=== PATIENT | female | born 1950 | race African-American/Black ===

== ENCOUNTER 2016-08-02 02:42 | Emergency (ER) | payer OTHER, MEDICARE ==
[~2016-08-02] VITALS: Ht 157.5 cm; Wt 72.5 kg
[2016-08-02 02:43] VITALS: BP 197/88; PULSE 89; RESP 16; TEMP 97.7; O2SAT 95
[2016-08-02] MEDS ORDERED: AMLO10TA2 PO (03:02)
[2016-08-02] MEDS ORDERED: ALPR.5 PO (03:02)
[2016-08-02] MEDS ORDERED: SIMV20TA PO (03:02)
[2016-08-02] MEDS ORDERED: ASPI81CH7 CHEW (03:02)
[2016-08-02] MEDS ORDERED: LISI10TA3 PO (03:02)
[2016-08-02] MEDS ORDERED: cloNIDine HCL 0.1 MG TAB PO ONE (03:15)
--- NOTE | 2016-08-02 03:18 | PD ---
HPI Chief Complaint: Nosebleed Time Seen by Provider: 03:03 Travel History International Travel<30 days: No Contact w/Intl Traveler<30days: No Traveled to known affect area: No History of Present Illness HPI This patient has history of nosebleeds. She had cautery by urinalysis throat physician 2 months ago. He had a nose bleed yesterday which stopped. She had one this evening as well. Currently has stopped. No presyncopal symptoms. She takes daily aspirin. Has history of hypertension on medication for it. At this time symptoms severity is mild PFSH Past Medical History Hx Anticoagulant Therapy: No Anxiety: Yes Cardiovascular Problems: Yes High Cholesterol: Yes Congestive Heart Failure: Yes Diminished Hearing: No Hypertension: Yes Tetanus Vaccination: > 5 Years ?: Not Past Surgical History Hysterectomy: No Social History Alcohol Use: No Tobacco Use: No Substance Use: No Allergies-Medications (Allergen,Severity, Reaction): Coded Allergies: No Known Allergies (Unverified , 08/02/16) Reported Meds & Prescriptions Reported Meds & Active Scripts Active Reported Simvastatin 20 Mg Tab 20 Mg PO DAILY Xanax (Alprazolam) 0.5 Mg Tab 0.5 Mg PO Q4H PRN Aspirin Children's (Aspirin) 81 Mg Chew 81 Mg CHEW DAILY Lisinopril 10 Mg Tab 10 Mg PO DAILY Amlodipine (Amlodipine Besylate) 10 Mg Tab 10 Mg PO DAILY Review of Systems General / Constitutional: No: Fever HENT: No: Headaches Cardiovascular: No: Chest Pain or Discomfort Physical Exam Narrative NECK: Symmetrical appearance, midline trachea. No mass or crepitus. Thyroid without enlargement, tenderness, or mass. SKIN: Focused skin assessment reveals no rash or ulcers. Skin is warm and dry. Palpation shows no induration or nodules. Psych: Normal mood and affect. Normal insight and judgment. No active bleeding in the nares and throat clear Data Data Last Documented VS Vital Signs Date Time Temp Pulse Resp B/P Pulse Ox O2 Delivery O2 Flow Rate FiO2 08/02/16 03:02 20 08/02/16 02:43 97.7 89 197/88 95 Room Air MDM Medical Decision Making Medical Screen Exam Complete: Yes Emergency Medical Condition: Yes Medical Record Reviewed: Yes Differential Diagnosis Epistaxis, AVM, accelerated hypertension Narrative Course I have reviewed the patient's electronic medical record. At this time the nose is not bleeding Gave her a dose of clonidine and recommend she check her blood pressure daily and follow with physician for it She should call her ENT physician in the morning for repeat evaluation Will hold her aspirin until she can contact her physician Diagnosis Primary Impression: Epistaxis, recurrent Additional Impression: Accelerated hypertension Additional Instructions: The patient was advised to follow up with their physician and return if they worsen. Check and record blood pressure daily Call ENT physician in the morning for follow-up recommendations Hold aspirin until your physician can discuss this with you Med/Other Pt SpecificInfo: Other Disposition: DISCHARGE HOME Condition: Stable Huy Clifton MD August 02, 2016 03:18
== END 2016-08-02 03:45 | disposition home or self-care (01) ==
LOC: NEPE 02:42
DX: R04.0 Epistaxis (principal); I10 Essential (primary) hypertension
CPT/HCPCS: 99283

== ENCOUNTER 2016-08-04 11:25 | Emergency (ER) | payer MEDICARE, OTHER ==
[~2016-08-04] VITALS: Ht 162.6 cm; Wt 72.0 kg
[~2016-08-04 11:25] MED LIST: ALPR.5 PO; AMLO10TA2 PO; ASPI81CH7 CHEW; LISI10TA3 PO; SIMV20TA PO
[2016-08-04 11:27] VITALS: BP 148/77; PULSE 82; RESP 15; TEMP 98.1; O2SAT 97
--- NOTE | 2016-08-04 11:39 | PD ---
Physical Exam Time Seen by Provider: 11:35 Narrative 66yo F c/o continued nose bleeding after nasal packing by PCP yesterday. PCP told to come to ER for repacking w/ better equipment. Had cauterized 1 month ago. Denies lightheadedness, dizziness, near syncope, syncope. Patient seen in triage. VS reviewed. Patient awaiting bed placement. Data Data Last Documented VS Vital Signs Date Time Temp Pulse Resp B/P Pulse Ox O2 Delivery O2 Flow Rate FiO2 08/04/16 11:27 98.1 82 15 148/77 97 MDM Supervised Visit with WESLEY: Kalie Esqueda Aug 04, 2016 11:39
--- NOTE | 2016-08-04 12:42 | PD ---
HPI Chief Complaint: Nosebleed Time Seen by Provider: 11:58 Travel History International Travel<30 days: No Contact w/Intl Traveler<30days: No Traveled to known affect area: No History of Present Illness HPI This is a 66-year-old female who presents to the emergency department with 3 days of bleeding from her left nose, constant, moderate severity. Patient was seen by Dr. West, ear nose and throat in the office yesterday afternoon and nasal packing was placed. She went to the emergency department last evening because she continued to have bleeding. She was sent home. She called the office today because she is continuing to have oozing from the nose and they sent her here to the emergency department. She denies any lightheadedness or dizziness. She's been holding her aspirin and taking her blood pressure medications as instructed. She has a history of having required cauterization in the nose several years ago. PFSH Past Medical History Hx Anticoagulant Therapy: No Anxiety: Yes Cardiovascular Problems: Yes High Cholesterol: Yes Congestive Heart Failure: Yes Diminished Hearing: No Hypertension: Yes ?: Not Past Surgical History Hysterectomy: No Social History Alcohol Use: No Tobacco Use: No Substance Use: No Allergies-Medications (Allergen,Severity, Reaction): Coded Allergies: No Known Allergies (Unverified , 08/04/16) Reported Meds & Prescriptions Reported Meds & Active Scripts Active Reported Simvastatin 20 Mg Tab 20 Mg PO DAILY Xanax (Alprazolam) 0.5 Mg Tab 0.5 Mg PO Q4H PRN Aspirin Children's (Aspirin) 81 Mg Chew 81 Mg CHEW DAILY Lisinopril 10 Mg Tab 10 Mg PO DAILY Amlodipine (Amlodipine Besylate) 10 Mg Tab 10 Mg PO DAILY Review of Systems Except as stated in HPI: all other systems reviewed are Neg Physical Exam Narrative GENERAL:Well appearing, no acute distress SKIN: Focused skin assessment warm and dry. HEAD: Atraumatic. Normocephalic. EYES: Pupils equal and round. No injection or drainage. ENT: Packing in the left nare with a slow trickle of dark blood. NECK: Trachea midline. CARDIOVASCULAR: Regular rate and rhythm. No murmur appreciated. RESPIRATORY: Clear to auscultation. Breath sounds equal bilaterally. GASTROINTESTINAL: Abdomen soft, non-tender, nondistended. MUSCULOSKELETAL: No obvious deformities. NEUROLOGICAL: Awake and alert. No obvious cranial nerve deficits. Moving all extremities. PSYCHIATRIC: Appropriate mood and affect; insight and judgment normal. Data Data Last Documented VS Vital Signs Date Time Temp Pulse Resp B/P Pulse Ox O2 Delivery O2 Flow Rate FiO2 08/04/16 11:27 98.1 82 15 148/77 97 MDM Medical Decision Making Medical Screen Exam Complete: Yes Emergency Medical Condition: Yes Interpretation(s) Afebrile, hypertensive Differential Diagnosis Anterior epistaxis, posterior epistaxis Narrative Course This is a 66-year-old female who presents to the emergency department with epistaxis. She had packing placed in the ENT office. I spoke to Dr. Merchant who recommended that I replaced the patient's packing with a 7.5 cm pack. I placed a long Rhino Rocket. Patient tolerated the procedure. She'll be discharged on pain control and she was told to follow-up with ENT tomorrow. Diagnosis Primary Impression: Epistaxis, recurrent Referrals: ENT tomorrow Patient Instructions: General Instructions Additional Instructions: If you have another nose bleed: - Sit forward at the waist, don't lie down or tilt your head back. - Pinch the soft area towards the bottom of your nose below the bone. - Squeeze your nose shut for ATLEAST 15 minutes. Use a clock and don't release pressure until time is up. If this fails try again for 30 minutes. If your nose continues to bleed, go to the emergency department. Return to the Emergency department if: You are having difficulty bleeding Your nose bleeds cause you to turn pale, or make you tired or confused If they won't stop after fifteen minutes of constant pressure If you have chest pain, shortness of breath, or other serious symptoms. Call 911 if you are bleeding a lot, have chest pain, or feel woozy. You can help prevent nose bleeds by getting a humidifier in your bedroom. Keeping the inside of your nose moist with bacitracin ointment applied with a cotton swab twice daily. Med/Other Pt SpecificInfo: No Change to Meds Disposition: 01 DISCHARGE HOME Condition: Stable Becca Gonzalez MD Aug 04, 2016 12:42
[2016-08-04] MEDS ORDERED: CHLO25TA2 PO (18:37)
== END 2016-08-04 14:20 | disposition home or self-care (01) ==
LOC: NEPD 11:25
DX: R04.0 Epistaxis (principal); E78.00 Pure hypercholesterolemia, unspecified; I50.9 Heart failure, unspecified; I10 Essential (primary) hypertension
CPT/HCPCS: 30901

== ENCOUNTER 2016-08-04 16:20 | Observation (INO) | payer MEDICARE ==
[2016-08-04] VITALS (7 sets, daily range): BP systolic 138–168; BP diastolic 65–81; PULSE 84–110; RESP 16–18; TEMP 97.8–98.1; O2SAT 91–97
[~2016-08-04] VITALS: Ht 157.5 cm; Wt 72.0 kg
--- NOTE | 2016-08-04 16:26 | PD ---
Physical Exam Time Seen by Provider: 16:24 Narrative 66yo F returns w/ continued nose bleeding after nasal rocket placed earlier today. Is now feeling lightheaded. Denies dizziness. Patient seen in triage. VS reviewed. Awaiting bed placement. Data Data Last Documented VS Vital Signs Date Time Temp Pulse Resp B/P Pulse Ox O2 Delivery O2 Flow Rate FiO2 08/04/16 16:21 97.8 110 18 154/81 95 MDM Supervised Visit with WESLEY: Kalie Esqueda Aug 04, 2016 16:26
[2016-08-04] MEDS ORDERED: SODIUM CHLOR 0.9% 1000 ML INJ 1,000 ML IV ONE (17:00)
--- NOTE | 2016-08-04 17:20 | PD ---
Physical Exam Narrative Patient was seen by ED physician and signed out to me. Patient took doxycycline, one tablet yesterday. Data Data Last Documented VS Vital Signs Date Time Temp Pulse Resp B/P Pulse Ox O2 Delivery O2 Flow Rate FiO2 08/04/16 16:21 97.8 110 18 154/81 95 Orders Complete Blood Count With Diff (08/04/16 16:57) Basic Metabolic Panel (Bmp) (08/04/16 16:57) Sodium Chlor 0.9% 1000 Ml Inj (Ns 1000 M (08/04/16 17:00) Prothrombin Time / Inr (Pt) (08/04/16 17:13) Act Partial Throm Time (Ptt) (08/04/16 17:13) Morphine Inj (Morphine Inj) (08/04/16 17:30) Ondansetron Inj (Zofran Inj) (08/04/16 17:30) Ampicillin-Sulbactam Inj (Unasyn Inj) (08/04/16 17:30) Consult Ent (08/04/16 ) Labs Laboratory Tests Test 08/04/16 08/04/16 15:15 17:00 Prothrombin Time 11.2 SEC Prothromb Time International 1.0 RATIO Ratio Activated Partial 25.7 SEC Thromboplast Time White Blood Count 9.3 TH/MM3 Red Blood Count 4.24 MIL/MM3 Hemoglobin 11.4 GM/DL Hematocrit 35.2 % Mean Corpuscular Volume 83.0 FL Mean Corpuscular Hemoglobin 26.8 PG Mean Corpuscular Hemoglobin 32.3 % Concent Red Cell Distribution Width 15.0 % Platelet Count 220 TH/MM3 Mean Platelet Volume 11.4 FL Neutrophils (%) (Auto) 72.6 % Lymphocytes (%) (Auto) 15.6 % Monocytes (%) (Auto) 10.9 % Eosinophils (%) (Auto) 0.3 % Basophils (%) (Auto) 0.6 % Neutrophils # (Auto) 6.7 TH/MM3 Lymphocytes # (Auto) 1.4 TH/MM3 Monocytes # (Auto) 1.0 TH/MM3 Eosinophils # (Auto) 0.0 TH/MM3 Basophils # (Auto) 0.1 TH/MM3 CBC Comment DIFF FINAL Differential Comment Sodium Level 136 MEQ/L Potassium Level 3.6 MEQ/L Chloride Level 98 MEQ/L Carbon Dioxide Level 29.7 MEQ/L Anion Gap 8 MEQ/L Blood Urea Nitrogen 21 MG/DL Creatinine 1.04 MG/DL Estimat Glomerular Filtration 64 ML/MIN Rate Random Glucose 93 MG/DL Calcium Level 9.8 MG/DL MDM Supervised Visit with WESLEY: No Narrative Course Patient was given IV fluid. Morphine 2 mg IV. Zofran 4 mg IV. Unasyn 3 g IV. I spoke with Dr. Merchant, ENT on-call. Advised admitted to the medical service with ENT consultation. Diagnosis Primary Impression: Epistaxis, recurrent Admitting Information Admitting Physician Requests: Observation Jarrell Lord MD Aug 04, 2016 17:20
[2016-08-04] MEDS ORDERED: ONDANSETRON HCL 4 MG/2 ML VIAL IV PUSH ONE (17:30)
[2016-08-04] MEDS ORDERED: MORPHINE SULFATE 4 MG/ML INJ IV PUSH ONE (17:30)
[2016-08-04] MEDS ORDERED: AMPICILLIN-SULBACTAM INJ 3 GM in SODIUM CHLORIDE 0.9% INJ 100 ML IV ONE (17:30)
[2016-08-04 17:34] LABS: AUTOMATED NEUTROPHIL # 6.7 TH/MM3 (1.8-7.7); BASOPHIL # 0.1 TH/MM3 (0-0.2); BASOPHIL % 0.6 % (0.0-2.0); EOSINOPHIL % 0.3 % (0.0-4.0); HEMATOCRIT 35.2 % (35.0-46.0); HEMO FLAGS DIFF FINAL; LYMPH % 15.6 % (9.0-44.0); LYMPHOCYTE # 1.4 TH/MM3 (1.0-4.8); MEAN CORPUSCULAR HEMOGLOBIN 26.8 PG (27.0-34.0); MEAN CORPUSCULAR HGB CONC 32.3 % (32.0-36.0); MONO % 10.9 % (0.0-8.0); NEUT % 72.6 % (16.0-70.0); PLATELET COUNT 220 TH/MM3 (150-450); RED BLOOD COUNT 4.24 MIL/MM3 (4.00-5.30); WHITE BLOOD COUNT 9.3 TH/MM3 (4.0-11.0)
[2016-08-04 17:49] LABS: BICARBONATE 29.7 MEQ/L (21.0-32.0); POTASSIUM 3.6 MEQ/L (3.5-5.1)
[2016-08-04 17:51] LABS: APTT (PATIENT) 25.7 SEC (24.3-30.1); PROTHROMBIN TIME - PATIENT 11.2 SEC (9.8-11.6)
[2016-08-04] MEDS ORDERED: MORPHINE SULFATE 4 MG/ML INJ IV PUSH PRN (18:30)
[2016-08-04] MEDS ORDERED: PANTOPRAZOLE SODIUM 40 MG VIAL IV PUSH SCH ×2 (18:30→20:00)
[2016-08-04] MEDS ORDERED: CHLO25TA2 PO (18:37)
[2016-08-04] MEDS: SODIUM CHLOR 0.9% 1000 ML INJ 1,000 ML IV SCH (19:34)
[2016-08-04] MEDS ORDERED: SODIUM CHLORIDE 0.9% FLUSH 10 ML FLUSH IVF PRN (19:45)
[2016-08-04] MEDS ORDERED: ACETAMINOPHEN 325 MG TAB PO PRN ×2 (19:45→20:00)
[2016-08-04] MEDS ORDERED: ONDANSETRON HCL 4 MG/2 ML VIAL IV PRN (19:45)
[2016-08-04] MEDS ORDERED: ZOLPIDEM TARTRATE 5 MG TAB PO PRN (20:00)
[2016-08-04] MEDS ORDERED: cloNIDine HCL 0.1 MG TAB PO PRN (20:00)
[2016-08-04] MEDS ORDERED: ONDANSETRON HCL 4 MG/2 ML VIAL IVP PRN (20:00)
[2016-08-04] MEDS ORDERED: ACETAMINOPHEN/HYDROcodone 325 MG/5 MG TAB PO PRN (20:00)
[2016-08-04] MEDS ORDERED: NALOXONE HCL 0.4 MG/ML AMP IV PRN (20:00)
[2016-08-04] MEDS ORDERED: SENNOSIDES 8.6 MG TAB PO PRN (20:00)
[2016-08-04] MEDS ORDERED: SODIUM CHLORIDE 0.9% FLUSH 10 ML FLUSH IV FLUSH PRN (20:00)
[2016-08-04] MEDS ORDERED: BISACODYL 10 MG SUPP RECTAL PRN (20:00)
[2016-08-04] MEDS ORDERED: ALPRAZolam 0.5 MG TAB PO PRN (20:00)
[2016-08-04] MEDS ORDERED: MAGNESIUM HYDROXIDE SUSP 30 ML CUP PO PRN (20:00)
[2016-08-04] MEDS ORDERED: ENALAPRILAT 2.5 MG/2 ML VIAL IV PUSH PRN (20:00)
[2016-08-04] MEDS ORDERED: LACTULOSE SYRUP 20 GM/30 ML CUP PO PRN (20:00)
[2016-08-04] MEDS ORDERED: SODIUM CHLORIDE 0.9% FLUSH 10 ML FLUSH IV FLUSH SCH (21:00)
[2016-08-04] MEDS ORDERED: AMOXICILLIN/CLAVULANATE K 875 MG TAB PO SCH (21:00)
[2016-08-04] MEDS ORDERED: PILL SPLITTER OTHER PRN (21:15)
[2016-08-04] MEDS: DOCUSATE SODIUM 50 MG/SENNA 8.6 MG TAB PO SCH (21:26)
[2016-08-04] MEDS: SODIUM CHLORIDE 0.9% FLUSH 10 ML FLUSH IV FLUSH SCH (21:27)
[2016-08-05] VITALS (8 sets, daily range): BP systolic 141–164; BP diastolic 58–80; PULSE 60–82; RESP 18–20; TEMP 96.5–98.9; O2SAT 86–97
[2016-08-05] MEDS ORDERED: cloNIDine HCL 0.1 MG TAB PO ONE (01:47)
[2016-08-05] MEDS: AMPICILLIN/SULBAC 3 GM/NS 100 ML IV SCH ×8 (01:55→20:00)
[2016-08-05 06:58] LABS: AUTOMATED NEUTROPHIL # 5.6 TH/MM3 (1.8-7.7); BASOPHIL % 0.3 % (0.0-2.0); EOSINOPHIL # 0.1 TH/MM3 (0-0.4); EOSINOPHIL % 1.5 % (0.0-4.0); HEMO FLAGS DIFF FINAL; LYMPH % 14.1 % (9.0-44.0); LYMPHOCYTE # 1.1 TH/MM3 (1.0-4.8); MEAN CELL VOLUME 83.4 FL (80.0-100.0); MEAN CORPUSCULAR HEMOGLOBIN 26.9 PG (27.0-34.0); MEAN CORPUSCULAR HGB CONC 32.3 % (32.0-36.0); MONO % 9.8 % (0.0-8.0); NEUT % 74.3 % (16.0-70.0); PLATELET COUNT 149 TH/MM3 (150-450); RED CELL DISTRIBUTION WIDTH 14.9 % (11.6-17.2); WHITE BLOOD COUNT 7.6 TH/MM3 (4.0-11.0)
[2016-08-05 07:34] LABS: BICARBONATE 32.1 MEQ/L (21.0-32.0); POTASSIUM 3.5 MEQ/L (3.5-5.1)
[2016-08-05] MEDS: DOCUSATE SODIUM 50 MG/SENNA 8.6 MG TAB PO SCH ×2 (08:27→20:19)
[2016-08-05] MEDS: SODIUM CHLOR 0.9% 1000 ML INJ 1,000 ML IV SCH (08:48)
[2016-08-05] MEDS ORDERED: CHLORTHALIDONE 12.5 MG PO SCH (09:00)
[2016-08-05] MEDS: SODIUM CHLORIDE 0.9% FLUSH 10 ML FLUSH IV FLUSH SCH ×2 (09:00→20:11)
[2016-08-05] MEDS ORDERED: LISINOPRIL 10 MG TAB PO SCH (09:00)
[2016-08-05] MEDS ORDERED: NON-FORMULARY DRUG (Simvastatin 20 MG) PO SCH (09:00)
[2016-08-05] MEDS: PRAVASTATIN SOD 40 MG TAB PO SCH (09:00)
[2016-08-05] MEDS: CHLORTHALIDONE 50 MG TAB PO SCH (09:50)
--- NOTE | 2016-08-05 10:08 | HHI.HP ---
History of Present Illness Primary Care Physician Henok Lorenzo MD Admission Diagnosis epistaxis Diagnoses: (1) Accelerated hypertension (2) Epistaxis, recurrent History of Present Illness 66 Y AAF. SEEN IN MY OFFICE. RECURRENT EPISTAXIS. INTO ER AND WENT HOME, CAME BACK W INTRACTABLE EPISTAXIS. STARTED HER ON CHLORTHALIDONE LAST WEEK AND WAS WORKING UP MYALGIAS AND ATTEMPTING TO CONTROL SEVERE ANXIETY AND PERSONALITY DISORDER NOS. PT W ONGOING EPISTAXIS HERE IN ER, I WAS CALLED FOR ADMIT. BLEEDING STILL THIS AM. GIVEN IV ABX. Review of Systems Constitutional: COMPLAINS OF: Fatigue, Dizziness, Change in appetite Ears, nose, mouth, throat: COMPLAINS OF: Epistaxis Respiratory: COMPLAINS OF: Cough Except as stated in HPI: all other systems reviewed are Neg Past Family Social History Allergies: Coded Allergies: No Known Allergies (Unverified , 08/04/16) Past Medical History dCHF PANIC DIS htn Past Surgical History NASAL CAUTERY RECURRENT Reported Medications Current Medications Medications (Trade) Dose Ordered Sig/Lalit Route Start Time Stop Time Status Last Admin (NS 1000 ml Inj) 1,000 ml @ 70 mls/hr [id number] IV 08/04/16 18:30 08/04/16 19:34 (Morphine Inj) 2 mg Q3H PRN IV PUSH 08/04/16 18:30 (Augmentin) 875 mg Q12HR PO 08/04/16 21:00 08/04/16 21:27 (Xanax) 0.5 mg Q4H PRN PO 08/04/16 20:00 (Norvasc) 10 mg DAILY PO 08/05/16 09:00 08/05/16 08:26 (Prinivil) 10 mg DAILY PO 08/05/16 09:00 08/05/16 08:27 (NS Flush) 2 ml UNSCH PRN IV FLUSH 08/04/16 20:00 (NS Flush) 2 ml BID IV FLUSH 08/04/16 21:00 08/04/16 21:27 (Tylenol) 650 mg Q4H PRN PO 08/04/16 20:00 (Zofran Inj) 4 mg Q6H PRN IVP 08/04/16 20:00 (Ambien) 5 mg HS PRN PO 08/04/16 20:00 (Narcan Inj) 0.4 mg UNSCH PRN IV 08/04/16 20:00 (Olga-Colace) 1 tab BID PO 08/04/16 21:00 08/05/16 08:27 (Milk Of Magnesia Liq) 30 ml Q12H PRN PO 08/04/16 20:00 (Senokot) 17.2 mg Q12H PRN PO 08/04/16 20:00 (Dulcolax Supp) 10 mg DAILY PRN RECTAL 08/04/16 20:00 (Lactulose Liq) 30 ml DAILY PRN PO 08/04/16 20:00 (Chidester 5-325 Mg) 1 tab Q4H PRN PO 08/04/16 20:00 (Catapres) 0.1 mg Q6H PRN PO 08/04/16 20:00 (Vasotec Inj) 2.5 mg Q6H PRN IV PUSH 08/04/16 20:00 (Protonix Inj) 40 mg Q24H IV PUSH 08/05/16 20:00 (Hygroton) 12.5 mg DAILY PO 08/05/16 09:00 08/05/16 09:50 (Pill Splitter) 1 ea UNSCH PRN OTHER 08/04/16 21:15 Pravastatin Sodium 40 mg 40 mg DAILY PO 08/05/16 09:00 08/05/16 09:00 (Unasyn Inj/NS Inj) 100 ml @ 200 mls/hr Q6H IV 08/05/16 02:00 08/05/16 07:56 Family History F CAD, NEG OTHERWISE 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 SKIN: No rashes, ecchymoses or lesions. Cool and dry. HEAD: Atraumatic. Normocephalic. No temporal or scalp tenderness. EYES: Pupils equal round and reactive. Extraocular motions intact. No scleral icterus. No injection or drainage. ENT: Nose without purulent drainage or septal hematoma. Throat without erythema , tonsillar hypertrophy or exudate. Uvula midline. Airway patent. +NASAL ROCKET L NECK: Trachea midline. No JVD or lymphadenopathy. Supple, nontender, no meningeal signs. CARDIOVASCULAR: Regular rate and rhythm without murmurs, gallops, or rubs. RESPIRATORY: Clear to auscultation. Breath sounds equal bilaterally. No wheezes , rales, or rhonchi. GASTROINTESTINAL: Abdomen soft, non-tender, nondistended. No hepato-splenomegaly , or palpable masses. No guarding. MUSCULOSKELETAL: Extremities without clubbing, cyanosis, or edema. No joint tenderness, effusion, or edema noted. No calf tenderness. Negative Homans sign bilaterally. NEUROLOGICAL: Awake and alert. Cranial nerves II through XII intact. Motor and sensory grossly within normal limits. Five out of 5 muscle strength in all muscle groups. Normal speech. Laboratory Laboratory Tests Test 08/04/16 08/04/16 08/05/16 08/05/16 15:15 17:00 06:05 06:09 Prothrombin Time 11.2 Prothromb Time International 1.0 Ratio Activated Partial 25.7 Thromboplast Time White Blood Count 9.3 7.6 Red Blood Count 4.24 3.60 Hemoglobin 11.4 9.7 Hematocrit 35.2 30.0 Mean Corpuscular Volume 83.0 83.4 Mean Corpuscular Hemoglobin 26.8 26.9 Mean Corpuscular Hemoglobin 32.3 32.3 Concent Red Cell Distribution Width 15.0 14.9 Platelet Count 220 149 Mean Platelet Volume 11.4 10.9 Neutrophils (%) (Auto) 72.6 74.3 Lymphocytes (%) (Auto) 15.6 14.1 Monocytes (%) (Auto) 10.9 9.8 Eosinophils (%) (Auto) 0.3 1.5 Basophils (%) (Auto) 0.6 0.3 Neutrophils # (Auto) 6.7 5.6 Lymphocytes # (Auto) 1.4 1.1 Monocytes # (Auto) 1.0 0.7 Eosinophils # (Auto) 0.0 0.1 Basophils # (Auto) 0.1 0.0 CBC Comment DIFF FINAL DIFF FINAL Differential Comment Sodium Level 136 139 Potassium Level 3.6 3.5 Chloride Level 98 101 Carbon Dioxide Level 29.7 32.1 Anion Gap 8 6 Blood Urea Nitrogen 21 14 Creatinine 1.04 0.93 Estimat Glomerular Filtration 64 73 Rate Random Glucose 93 101 Calcium Level 9.8 9.1 Result Diagram: 08/05/16 0605 08/05/16 0609 Assessment and Plan Problem List: (1) Accelerated hypertension Status: Acute (2) Epistaxis, recurrent Status: Acute Assessment and Plan EPISTAXIS URGENT HTN PANIC DISORDER PERSONALITY DISORDER HPLD D CHF URINARY OBSTRUCTION MYALGIAS PLAN: NASAL PACKING IV ABX ENT CONSULT LOWER BP SEE ORDERS OBS ADMIT Henok Lorenzo MD Aug 05, 2016 10:08
[2016-08-05] MEDS: PANTOPRAZOLE SODIUM 40 MG VIAL IV PUSH SCH (20:19)
[2016-08-06] VITALS (14 sets, daily range): BP systolic 138–165; BP diastolic 60–95; PULSE 57–87; RESP 18–20; TEMP 97.8–99; O2SAT 95–97
[2016-08-06] MEDS: AMPICILLIN/SULBAC 3 GM/NS 100 ML IV SCH ×8 (02:05→21:04)
--- NOTE | 2016-08-06 08:01 | HHI.PR ---
Subjective Remarks Follow-up for epistaxis. Patient denies any further left nostril bleeding overnight. She did have some scant bleeding from her right nostril when she woke up. She denies any lightheadedness, dizziness, chest pain, shortness of breath. She states that she's had procedure and her ENT doctors office for nose bleeding in the past. She said she went to see her ENT, Dr. West this week who wasn't able to do a procedure with the active bleeding. She is concerned because she feels like her oxygen level will drop to 80 if she is not on oxygen. She was cleared by ENT yesterday for discharge with nasal packing until Monday. She would like to have surgery on her nose while she is in the hospital. Objective Vitals Vital Signs Date Time Temp Pulse Resp B/P Pulse Ox O2 Delivery O2 Flow Rate FiO2 08/06/16 07:48 96 Nasal Cannula 1.00 08/06/16 05:42 18 97 08/06/16 04:18 97.9 87 20 149/95 95 08/06/16 00:03 99.0 70 20 140/63 95 08/05/16 23:50 64 08/05/16 19:14 98.9 77 20 141/59 97 08/05/16 19:14 97 Nasal Cannula 1.50 08/05/16 16:10 97.9 77 18 152/58 95 08/05/16 11:24 74 08/05/16 11:23 98.0 82 18 142/61 91 08/05/16 11:09 96.5 60 18 164/80 96 08/05/16 08:22 98.5 77 18 141/63 86 Result Diagram: 08/06/16 0633 08/05/16 0609 Objective Remarks GENERAL: Well-developed well-nourished. In no acute distress. SKIN: Warm and dry. No lesions noted. HEENT: Normocephalic. Pupils equal and round. Mucous membranes pink and moist. Nasal packing in place in the left nostril with surrounding dried blood. No active bleeding noted from the right naris or in the posterior pharynx. CARDIOVASCULAR: Regular rate and rhythm. Systolic murmur appreciated. RESPIRATORY: No accessory muscle use. Clear to auscultation. Breath sounds equal bilaterally. GASTROINTESTINAL: Abdomen soft, non-tender, nondistended. Bowel sounds x4. MUSCULOSKELETAL: No obvious deformities. No clubbing or cyanosis. No edema. NEUROLOGICAL: Awake and alert. No focal neurological deficits. Moves upper and lower extremities spontaneously. Normal speech. PSYCHIATRIC: Anxious mood and affect; insight and judgment normal. A/P Assessment and Plan 66-year-old female with past medical history of epistaxis presents with recurrent epistaxis Epistaxis: S/P Rhino Rocket with subsequent hemostasis. Hemoglobin did initially drop from 11.4-9.7, but has stabilized overnight at 9.3 today. ENT was consulted and recommend maintaining nasal packing until Monday and patient was cleared for discharge from their perspective. Continue antibiotics with packing in place. Supplemental oxygen as needed, check walk test. Control BP. Hypertension: Chronic. Reasonably controlled, but will increase her lisinopril with bleeding as above. Continue amlodipine and chlorthalidone. Clonidine and Vasotec as needed. Anxiety disorder: Chronic. Continue home Xanax. DVT prophylaxis: SCDs Discharge Planning Possible discharge today for outpatient ENT follow-up if patient remains stable. Follow-up results of walk test and blood pressure. Rito Lofton Aug 06, 2016 08:01
[2016-08-06] MEDS: PRAVASTATIN SOD 40 MG TAB PO SCH (09:00)
[2016-08-06] MEDS ORDERED: LISINOPRIL 20 MG TAB PO SCH (09:00)
[2016-08-06] MEDS ORDERED: OXYGENDME NAS.CANULA (09:06)
[2016-08-06] MEDS: CHLORTHALIDONE 50 MG TAB PO SCH (09:47)
[2016-08-06] MEDS: DOCUSATE SODIUM 50 MG/SENNA 8.6 MG TAB PO SCH ×2 (09:47→20:57)
[2016-08-06] MEDS: SODIUM CHLORIDE 0.9% FLUSH 10 ML FLUSH IV FLUSH SCH ×2 (09:52→20:57)
[2016-08-06] MEDS: LISINOPRIL 20 MG TAB PO SCH (20:55)
[2016-08-06] MEDS: PANTOPRAZOLE SODIUM 40 MG VIAL IV PUSH SCH (21:04)
[2016-08-07 00:10] VITALS: BP 130/60; PULSE 63; RESP 17; TEMP 98; O2SAT 95
[2016-08-07] MEDS: AMPICILLIN/SULBAC 3 GM/NS 100 ML IV SCH ×4 (02:10→07:54)
[2016-08-07 04:03] VITALS: BP 148/68; PULSE 69; RESP 18; TEMP 98; O2SAT 94
[2016-08-07 05:40] LABS: HEMATOCRIT 28.6 % (35.0-46.0); REVIEW FLAG FINAL
[2016-08-07 07:52] VITALS: O2SAT 92
[2016-08-07] MEDS: CHLORTHALIDONE 50 MG TAB PO SCH (07:55)
[2016-08-07] MEDS: DOCUSATE SODIUM 50 MG/SENNA 8.6 MG TAB PO SCH (07:55)
[2016-08-07] MEDS: LISINOPRIL 20 MG TAB PO SCH (07:55)
[2016-08-07] MEDS: PRAVASTATIN SOD 40 MG TAB PO SCH (07:56)
[2016-08-07] MEDS: SODIUM CHLORIDE 0.9% FLUSH 10 ML FLUSH IV FLUSH SCH (07:56)
[2016-08-07 08:05] VITALS: BP 160/70; PULSE 67; RESP 20; TEMP 98.5; O2SAT 95
[2016-08-07] MEDS ORDERED: DOXAZOSIN MESYLATE 1 MG TAB PO ONE (08:30)
--- NOTE | 2016-08-07 09:25 | HHI.PR ---
Subjective Remarks Follow-up for epistaxis, hypoxia. The patient denies any further nasal bleeding for about 36 hours now. She reports this is her first episode of epistaxis. She reports having stomach upset, which she attributes to not having a bowel movement in 3 days home although that bowel pattern is regular for her. She denies any vomiting and has been tolerating oral intake. She did fail her walk test yesterday, but she refused home oxygen because she feels like it would interfere with work. She says her oxygen saturation has been better today and she is asking to repeat oxygen walk test again today. She reports she has an itching rash on her right thigh, denies any generalized rash or shortness of breath. She understands that she needs to follow-up with ENT tomorrow as outpatient for nasal packing removal, and wants to go home today. Objective Vitals Vital Signs Date Time Temp Pulse Resp B/P Pulse Ox O2 Delivery O2 Flow Rate FiO2 08/07/16 08:05 98.5 67 20 160/70 95 08/07/16 04:03 98.0 69 18 148/68 94 08/07/16 00:10 98.0 63 17 130/60 95 08/06/16 22:16 95 21 08/06/16 21:50 57 08/06/16 19:33 98.2 67 18 138/62 95 08/06/16 16:16 97.9 68 18 140/60 96 08/06/16 15:00 65 08/06/16 14:58 147/62 08/06/16 13:28 165/65 08/06/16 11:48 98.6 64 18 163/67 96 Result Diagram: 08/07/16 0400 08/05/16 0609 Objective Remarks GENERAL: Well-developed well-nourished. In no acute distress. SKIN: Warm and dry. Possible mild dermatitis on the thigh, no other rash noted. HEENT: Normocephalic. Pupils equal and round. Mucous membranes pink and moist. Nasal packing in place in the left nostril with surrounding dried blood. No active bleeding noted from the right naris. CARDIOVASCULAR: Regular rate and rhythm. Systolic murmur appreciated. RESPIRATORY: No accessory muscle use. Clear to auscultation. Breath sounds equal bilaterally. GASTROINTESTINAL: Abdomen soft, non-tender, nondistended. Bowel sounds x4. MUSCULOSKELETAL: No obvious deformities. No clubbing or cyanosis. No edema. NEUROLOGICAL: Awake and alert. No focal neurological deficits. Moves upper and lower extremities spontaneously. Normal speech. PSYCHIATRIC: Anxious mood and affect; insight and judgment normal. A/P Assessment and Plan 66-year-old female with past medical history of epistaxis presents with recurrent epistaxis Epistaxis: S/P Rhino Rocket with subsequent hemostasis. Hemoglobin did initially drop from 11.4-9.7, but has stabilized at 9.6. ENT was consulted and recommend maintaining nasal packing until Monday and patient was cleared for discharge from their perspective. Continue antibiotics with packing in place. Supplemental oxygen as needed, check walk test. Control BP. Hypertension: Chronic. Better controlled with increase in lisinopril. Aggressive BP control with bleeding, start on Cardura. Continue amlodipine and chlorthalidone. Clonidine and Vasotec as needed. Constipation: MiraLAX 1. Hypoxia: Possibly secondary to diastolic heart failure. No respiratory symptoms or signs of volume overload. Check chest x-ray. Repeat home oxygen test. Supplemental oxygen as needed. Continue IS. Rash: Mild. Suspect contact dermatitis. Topical steroid. This does not appear to be a drug rash, however will change penicillin derivative antibiotic to clindamycin. Anxiety disorder: Chronic. Continue home Xanax. DVT prophylaxis: SCDs Discharge Planning Possible discharge today for outpatient ENT follow-up if patient remains stable. Follow-up results of walk test, although the patient has been refusing arrangement of home oxygen. Rito Lofton Aug 07, 2016 09:25
[2016-08-07] MEDS ORDERED: HYDROCORTISONE 1% CREAM 30 GM TOPICAL SCH (09:30)
[2016-08-07] MEDS ORDERED: POLYETHYLENE GLYCOL 17 GM PKG PO ONE (09:30)
[2016-08-07 10:00] VITALS: PULSE 83
--- NOTE | 2016-08-07 10:29 | RADRPT ---
EXAM DATE/TIME: 08/07/2016 09:55 [facility] COMPARISON: No previous studies available for comparison. INDICATIONS : Shortness of breath. MEDICAL HISTORY : None. SURGICAL HISTORY : None. ENCOUNTER: Initial ACUITY: 1 day PAIN SCORE: 2/10 LOCATION: Bilateral lower chest FINDINGS: Single AP view of the chest. Mild cardiac silhouette enlargement. Confluent opacity at the left lung base indicating atelectasis verses consolidation. Central pulmonary vasculature prominence. No kyaw pulmonary edema. No evidence of pleural effusion or pneumothorax. CONCLUSION: 1. Cardiac silhouette enlargement and mild pulmonary vascular congestion. 2. Left lower lobe atelectasis versus consolidation. Margarito Sanchez MD on August 07, 2016 at 10:26 Board Certified Radiologist. This report was verified electronically.
[2016-08-07] MEDS ORDERED: LISI-515 PO (10:52)
[2016-08-07] MEDS ORDERED: CARD2TAB PO (10:52)
[2016-08-07] MEDS ORDERED: CLIN150 PO (10:52)
[2016-08-07] MEDS ORDERED: CLINDAMYCIN 150 MG CAP PO SCH (12:00)
--- NOTE | 2016-08-07 15:11 | HHI.DS ---
Discharge Summary Admission Date Aug 04, 2016 at 18:08 Discharge Date: Aug 07, 2016 Admitting Diagnosis epistaxis (1) Hypoxia ICD Code: R09.02 Diagnosis: Secondary (2) Epistaxis, recurrent ICD Code: R04.0 Diagnosis: Principal (3) Accelerated hypertension ICD Code: I10 Diagnosis: Secondary Procedures Nasal packing performed in the ED 08/04/16 Brief History - From Admission 66 Y AAF. RECURRENT EPISTAXIS. WENT TO ER AND WENT HOME, CAME BACK W INTRACTABLE EPISTAXIS. STARTED ON CHLORTHALIDONE LAST WEEK AND WAS WORKING UP MYALGIAS AND ATTEMPTING TO CONTROL SEVERE ANXIETY AND PERSONALITY DISORDER NOS. PT W ONGOING EPISTAXIS HERE IN ER, I WAS CALLED FOR ADMIT. BLEEDING STILL THIS AM. GIVEN IV ABX. CBC/BMP: 08/07/16 0400 08/05/16 0609 Significant Findings Laboratory Tests Test 08/04/16 08/05/16 08/05/16 08/06/16 17:00 06:05 06:09 06:33 Hemoglobin 11.4 GM/DL 9.7 GM/DL 9.3 GM/DL (11.6-15.3) (11.6-15.3) (11.6-15.3) Mean Corpuscular Hemoglobin 26.8 PG 26.9 PG (27.0-34.0) (27.0-34.0) Mean Platelet Volume 11.4 FL (7.0-11.0) Neutrophils (%) (Auto) 72.6 % 74.3 % (16.0-70.0) (16.0-70.0) Monocytes (%) (Auto) 10.9 % 9.8 % (0.0-8.0) (0.0-8.0) Monocytes # (Auto) 1.0 TH/MM3 (0-0.9) Blood Urea Nitrogen 21 MG/DL (7-18) Creatinine 1.04 MG/DL (0.50-1.00) Estimat Glomerular Filtration 64 ML/MIN (>89) 73 ML/MIN (>89) Rate Red Blood Count 3.60 MIL/MM3 (4.00-5.30) Hematocrit 30.0 % (35.0-46.0) Platelet Count 149 TH/MM3 (150-450) Carbon Dioxide Level 32.1 MEQ/L (21.0-32.0) Test 08/07/16 04:00 Hemoglobin 9.6 GM/DL (11.6-15.3) Hematocrit 28.6 % (35.0-46.0) Imaging Last Impressions Chest X-Ray 08/07/16 0000 Signed Impressions: Service Date/Time: Sunday, August 07, 2016 09:55 - CONCLUSION: 1. Cardiac silhouette enlargement and mild pulmonary vascular congestion. 2. Left lower lobe atelectasis versus consolidation. Margarito Sanchez MD PE at Discharge GENERAL: Well-developed well-nourished. In no acute distress. SKIN: Warm and dry. Possible mild dermatitis on the thigh, no other rash noted. HEENT: Normocephalic. Pupils equal and round. Mucous membranes pink and moist. Nasal packing in place in the left nostril with surrounding dried blood. No active bleeding noted from the right naris. CARDIOVASCULAR: Regular rate and rhythm. Systolic murmur appreciated. RESPIRATORY: No accessory muscle use. Clear to auscultation. Breath sounds equal bilaterally. GASTROINTESTINAL: Abdomen soft, non-tender, nondistended. Bowel sounds x4. MUSCULOSKELETAL: No obvious deformities. No clubbing or cyanosis. No edema. NEUROLOGICAL: Awake and alert. No focal neurological deficits. Moves upper and lower extremities spontaneously. Normal speech. PSYCHIATRIC: Anxious mood and affect; insight and judgment normal. Pt update on day of discharge Plan of care discussed with the patient and her . At this time they are apprehensive, but when offered an additional night in the hospital, and they elect to follow-up with ENT as outpatient tomorrow. Patient has been unclear on whether she will accept home oxygen at discharge. Discussed with Dr. Low , recommends outpatient follow-up with pulmonology. Hospital Course 66-year-old female with past medical history of epistaxis presents with recurrent epistaxis Epistaxis: S/P Rhino Rocket with subsequent hemostasis. Hemoglobin did initially drop from 11.4-9.7, but has stabilized at 9.6. ENT was consulted and recommend maintaining nasal packing until Monday and patient was cleared for discharge from their perspective. Continue clindamycin with packing in place. Follow-up with ENT Tuesday 08/08. Hypertension: Chronic. Better controlled with increase in lisinopril. Aggressive BP control with bleeding, started on Cardura. Continue amlodipine and chlorthalidone. Hypoxia: Possibly secondary to diastolic heart failure. No respiratory symptoms or signs of volume overload. Chest x-ray with enlarged cardiac silhouette and difficult to assess left base, possible axis. Detailed home O2 walk test. Supplemental oxygen as needed, case management to arrange. Continue IS. Outpatient follow-up. Anxiety disorder: Chronic. Continue home Xanax. Pt Condition on Discharge: Stable Discharge Disposition: Discharge Home Discharge Time: > 30 minutes Discharge Instructions DIET: Follow Instructions for: Heart Healthy Diet Activities you can perform: Regular-No Restrictions Follow up Referrals: Ear Nose Throat - Next Day @ [facility] PCP Follow-up - 3-5 Days with Henok Lorenzo MD New Medications: Oxygen (O2) (Oxygen (O2)) Device 2 LITER ALLIE.CANULA CONTINUOUS Oxygen Concentrator Portable Gaseous 2 L/min via Nasal Canula Continuous For 99 months Prevent Hypoxemia #2 CYLINDER Clindamycin (Cleocin) 150 Mg Cap 300 MG PO Q6HR Infection Days 5 CAP Doxazosin (Cardura) 2 Mg Tab 2 MG PO HS Blood Pressure Management #30 TAB Lisinopril (Lisinopril) 20 Mg Tab 40 MG PO DAILY Blood Pressure Management #30 TAB Continued Medications: Alprazolam (Xanax) 0.5 Mg Tab 0.5 MG PO Q4H PRN ANXIETY Ref 0 TAB Amlodipine (Amlodipine) 10 Mg Tab 10 MG PO DAILY Blood Pressure Management #30 Ref 0 TAB Chlorthalidone (Chlorthalidone) 25 Mg Tab 12.5 MG PO DAILY Ref 0 TAB Simvastatin (Simvastatin) 20 Mg Tab 20 MG PO DAILY Cholesterol Management #30 Ref 0 TAB Discontinued Medications: Aspirin (Aspirin Children's) 81 Mg Chew 81 MG CHEW DAILY Ref 0 TAB Lisinopril (Lisinopril) 10 Mg Tab 10 MG PO DAILY #30 Ref 0 TAB Rito Lofton Aug 07, 2016 15:11
[2016-08-07] MEDS ORDERED: DOXAZOSIN MESYLATE 2 MG TAB PO SCH (21:00)
[2016-08-08] MEDS ORDERED: LISINOPRIL 20 MG TAB PO SCH (09:00)
[2016-08-08] MEDS ORDERED: AUGM875T3 PO (11:04)
[2016-08-08] MEDS ORDERED: HYDR-3533 PO (11:10)
--- NOTE | 2016-08-16 19:10 | PD ---
HPI Chief Complaint: Nosebleed Time Seen by Provider: 16:55 Travel History International Travel<30 days: No Contact w/Intl Traveler<30days: No Traveled to known affect area: No History of Present Illness HPI This is a 66-year-old female who was seen by me earlier today in the setting of epistaxis. I placed a long anterior posterior pack. She went home and started to feel dizzy and lightheaded, constant, moderate severity, feeling like she was going to pass out. She return to the emergency department. She also is reporting severe pain in her left nose. PFSH Past Medical History Hx Anticoagulant Therapy: No Anxiety: Yes Cardiovascular Problems: Yes High Cholesterol: Yes Congestive Heart Failure: Yes Diminished Hearing: No Hypertension: Yes ?: Not Past Surgical History Hysterectomy: No Social History Alcohol Use: No Tobacco Use: No Substance Use: No Allergies-Medications (Allergen,Severity, Reaction): Coded Allergies: No Known Allergies (Unverified , 08/08/16) Reported Meds & Prescriptions Reported Meds & Active Scripts Active Reported Chlorthalidone 25 Mg Tab 12.5 Mg PO DAILY Simvastatin 20 Mg Tab 20 Mg PO DAILY Xanax (Alprazolam) 0.5 Mg Tab 0.5 Mg PO Q4H PRN Amlodipine (Amlodipine Besylate) 10 Mg Tab 10 Mg PO DAILY Review of Systems Except as stated in HPI: all other systems reviewed are Neg Physical Exam Narrative GENERAL: Uncomfortable appearing SKIN: Diaphoretic HEAD: Normocephalic. EYES: No scleral icterus. No injection or drainage. ENT: Nasal packing in place on the left NECK: Supple, trachea midline. CARDIOVASCULAR: Tachycardic, without murmurs. RESPIRATORY: Breath sounds equal bilaterally. No accessory muscle use. GASTROINTESTINAL: Abdomen soft, non-tender, nondistended. MUSCULOSKELETAL: No cyanosis, or edema. Data Data Orders Complete Blood Count With Diff (08/04/16 16:57) Basic Metabolic Panel (Bmp) (08/04/16 16:57) Sodium Chlor 0.9% 1000 Ml Inj (Ns 1000 M (08/04/16 17:00) Prothrombin Time / Inr (Pt) (08/04/16 17:13) Act Partial Throm Time (Ptt) (08/04/16 17:13) Morphine Inj (Morphine Inj) (08/04/16 17:30) Ondansetron Inj (Zofran Inj) (08/04/16 17:30) Ampicillin-Sulbactam Inj (Unasyn Inj) (08/04/16 17:30) Consult Ent (08/04/16 ) Admit Order (Ed Use Only) (08/04/16 18:07) MDM Medical Decision Making Medical Screen Exam Complete: Yes Emergency Medical Condition: Yes Interpretation(s) Afebrile, mild tachycardia, hypertensive Hemoglobin is 11.4 Differential Diagnosis Vasovagal syncope, anemia, arrhythmia, electrolyte abnormality, dehydration Narrative Course This is a 66-year-old female who presents to the emergency Department lightheaded and dizzy in the setting of having nasal packing inserted. Patient appears to be having a vasovagal episode although symptomatic anemia is on the differential given her copious epistaxis earlier in the day. Labs will be obtained, patient will be given IV hydration. Patient is feeling outpatient therapy as this is her third visit to the emergency department in the setting of this nosebleed. I think patient will likely require observation. Diagnosis Primary Impression: Epistaxis, recurrent Patient Instructions: Clindamycin (By mouth), Lisinopril (By mouth), Doxazosin (By mouth), Nosebleed (GEN), Heart Healthy Diet (DC), Using Oxygen at Home (DC) , Hypoxia (GEN) Scripts Clindamycin (Cleocin)150 Mg [id number] Mg PO Q6HR 5 Days Prov:Rito Lofton 08/07/16 Lisinopril 20 Mg Tab40 Mg PO DAILY #30 TAB Prov:Rito Lofton 08/07/16 Doxazosin (Cardura)2 Mg Tab2 Mg PO HS #30 TAB Prov:Rito Lofton 08/07/16 Becca Gonzalez MD Aug 16, 2016 19:10
== END 2016-08-07 17:18 | disposition home or self-care (01) ==
LOC: NEPD 16:20 → NEDA 18:08 → NEPGCP 20:50
PROVIDERS: ADMIT Family Medicine; ATTEND Family Medicine
DX: R04.0 Epistaxis (principal); I11.0 Hypertensive heart disease with heart failure; I50.9 Heart failure, unspecified; R53.83 Other fatigue; R42 Dizziness and giddiness; R05 Cough; R06.02 Shortness of breath; R01.1 Cardiac murmur, unspecified; R09.02 Hypoxemia; K59.00 Constipation, unspecified; R91.8 Other nonspecific abnormal finding of lung field; R61 Generalized hyperhidrosis; R00.0 Tachycardia, unspecified; R21 Rash and other nonspecific skin eruption; F41.0 Panic disorder [episodic paroxysmal anxiety]; F60.9 Personality disorder, unspecified; N13.9 Obstructive and reflux uropathy, unspecified; M79.1 Myalgia; E78.5 Hyperlipidemia, unspecified; E78.00 Pure hypercholesterolemia, unspecified; F41.9 Anxiety disorder, unspecified; Z79.899 Other long term (current) drug therapy
CPT/HCPCS: 71010; 80048; 85014; 85018; 85025; 85610; 85730; 94620; 96365; 96375; 99285; C9113; G0378; J0295; J2405; J7030

== ENCOUNTER 2016-08-08 09:41 | Emergency (ER) | payer MEDICARE ==
[~2016-08-08 09:41] MED LIST changes: -ASPI81CH7 CHEW; +CARD2TAB PO; +CHLO25TA2 PO; +CLIN150 PO; +LISI-515 PO; -LISI10TA3 PO; +OXYGENDME NAS.CANULA
[2016-08-08 09:43] VITALS: BP 180/80; PULSE 90; RESP 16; TEMP 98.2; O2SAT 96
--- NOTE | 2016-08-08 10:32 | PD ---
HPI Chief Complaint: ENT Complaint Time Seen by Provider: 10:06 Travel History International Travel<30 days: No Contact w/Intl Traveler<30days: No Traveled to known affect area: No History of Present Illness HPI This is a 66-year-old female who presents to the emergency department with nasal packing that was placed 72 hours ago in the setting of epistaxis from the left nose. She went to the ear nose and throat doctor today for removal but no one was in the office. She came here to have the packing removed. She denies any fevers or chills, she is able to breathe without difficulty. It's unclear if she's been taking her antibiotics. PFSH Past Medical History Hx Anticoagulant Therapy: No Anxiety: Yes Cardiovascular Problems: Yes High Cholesterol: Yes Congestive Heart Failure: Yes Diminished Hearing: No Hypertension: Yes Tetanus Vaccination: Unknown ?: Not Past Surgical History Hysterectomy: No Social History Alcohol Use: No Tobacco Use: No Substance Use: No Allergies-Medications (Allergen,Severity, Reaction): Coded Allergies: No Known Allergies (Unverified , 08/08/16) Reported Meds & Prescriptions Reported Meds & Active Scripts Active Cleocin (Clindamycin HCl) 150 Mg Cap 300 Mg PO Q6HR 5 Days Lisinopril 20 Mg Tab 40 Mg PO DAILY Cardura (Doxazosin Mesylate) 2 Mg Tab 2 Mg PO HS Reported Chlorthalidone 25 Mg Tab 12.5 Mg PO DAILY Simvastatin 20 Mg Tab 20 Mg PO DAILY Xanax (Alprazolam) 0.5 Mg Tab 0.5 Mg PO Q4H PRN Amlodipine (Amlodipine Besylate) 10 Mg Tab 10 Mg PO DAILY Review of Systems Except as stated in HPI: all other systems reviewed are Neg Physical Exam Narrative GENERAL:Well appearing, no acute distress SKIN: Focused skin assessment warm and dry. HEAD: Atraumatic. Normocephalic. EYES: Pupils equal and round. No injection or drainage. ENT: Rhino Rocket in place in left nasal cavity with some dried scabbing around the left nostril NECK: Trachea midline. CARDIOVASCULAR: Regular rate and rhythm. No murmur appreciated. RESPIRATORY: Clear to auscultation. Breath sounds equal bilaterally. GASTROINTESTINAL: Abdomen soft, non-tender, nondistended. MUSCULOSKELETAL: No obvious deformities. NEUROLOGICAL: Awake and alert. No obvious cranial nerve deficits. Moving all extremities. PSYCHIATRIC: Appropriate mood and affect; insight and judgment normal. Data Data Last Documented VS Vital Signs Date Time Temp Pulse Resp B/P Pulse Ox O2 Delivery O2 Flow Rate FiO2 08/08/16 09:43 98.2 90 16 180/80 96 MDM Medical Decision Making Medical Screen Exam Complete: Yes Emergency Medical Condition: Yes Differential Diagnosis Anterior epistaxis, posterior epistaxis, hypertension Narrative Course This is a 66-year-old female who presents to the emergency department with request to remove her nasal packing. She had nasal packing placed on of last week in the setting of epistaxis. She continues to ooze some around the packing. She was hospitalized over the weekend and had a drop in her hemoglobin. She saw Dr. West early in the week for this. She was told to follow up in clinic this morning but when she went there were no doctors there. I spoke to Dr. West who wants to leave the patient's nasal packing in for 1 week. I confirm this several times because this will place her at increased risk of infection. Given the amount of bleeding she's had and the duration of bleeding he thinks we should leave the packing in. He agrees to see the patient on in clinic at which time he will remove her packing. I also called the patient's primary care physician Dr. Lorenzo and informed him of this plan. Patient says she's been taking antibiotics but she is unable to present me the bottle and I'm a little bit concerned about her reliability. She was given augmentin here in the emergency department and will be discharged with a prescription for continued antibiotic therapy. She also just took her blood pressure medication immediately prior to arrival so I don't want to make any additional changes to her regimen at this time. Diagnosis Primary Impression: Epistaxis, recurrent Patient Instructions: General Instructions Additional Instructions: If you develop fever, severe pain, weakness, lightheadedness or feeling unwell return to the emergency department immediately as this may be a sign of early infection and you will need your packing removed. Dr. West would like to see you in the office on in [place]. Med/Other Pt SpecificInfo: Prescription(s) given Scripts Amoxicillin-Clavulanate (Augmentin)875-125 Mg Tab1 Tab PO BID 5 Days Ref 0 Prov:Becca Gonzalez MD 08/08/16 Disposition: 01 DISCHARGE HOME Condition: Stable Becca Gonzalez MD Aug 08, 2016 10:31
[2016-08-08] MEDS ORDERED: AUGM875T3 PO (11:04)
[2016-08-08] MEDS ORDERED: HYDR-3533 PO (11:10)
[2016-08-08] MEDS ORDERED: AMOXICILLIN/CLAVULANATE K 875 MG TAB PO ONE (11:15)
[2016-08-08 11:16] VITALS: BP 165/74
== END 2016-08-08 12:05 | disposition home or self-care (01) ==
LOC: NEPD 09:41
DX: R04.0 Epistaxis (principal); I10 Essential (primary) hypertension
CPT/HCPCS: 99283